=== PATIENT | female | born 1940 | race Caucasian/White ===

== ENCOUNTER 2020-02-23 13:35 | Emergency (ER) | payer OTHER, MEDICAID, SELFPAY ==
[~2020-02-23] VITALS: Ht 160 cm; Wt 53.5 kg
[2020-02-23 13:44] VITALS: Ht 160 cm; Wt 53.5 kg
[2020-02-23 16:16] LABS: BASOPHIL % 0.1 % (0-2); PLATELET COUNT 333 x10^3mcL (130-400)
[2020-02-23 16:17] LABS: RED CELL DISTRIBUTION WIDTH 15.4 % (11.5-14.5)
[2020-02-23 16:55] LABS: ALKALINE PHOSPHATASE 69 U/L (46-116); ALT/SGPT 20 U/L (14-59); AST/SGOT 13 U/L (15-37); BILIRUBIN TOTAL 0.2 mg/dL (0.20-1.00); CALCIUM 8.9 mg/dL (8.5-10.1); CARBON DIOXIDE 22.1 mmol/L (21-32); CHLORIDE SERUM 109 mmol/L (98-107); CHOLESTEROL 161 mg/dL (<200); CREATININE SERUM 3.6 mg/dL (0.6-1.0); GLUCOSE SERUM 99 mg/dL (74-106); HDL CHOLESTEROL 41 mg/dL (40-60); LIPASE 177 IU/L (73-393); POTASSIUM SERUM 5.5 mmol/L (3.5-5.1); SODIUM SERUM 144 mmol/L (136-145); T4(THYROXINE) 7.2 ug/dL (4.7-13.3); TOTAL PROTEIN, SERUM 6.7 g/dL (6.4-8.2)
[2020-02-23] MEDS ORDERED: XANAX0.25 MG (17:33)
[2020-02-23] MEDS ORDERED: NOR10 PO (17:34)
[2020-02-23] MEDS ORDERED: LASIX20 MG PO (17:35)
[2020-02-23] MEDS ORDERED: ROCALTROL0.5 MCG PO (17:35)
[2020-02-23] MEDS ORDERED: MELATONIN3 M4 (17:37)
[2020-02-23] MEDS ORDERED: TOPROL XL25 MG PO (17:37)
[2020-02-23] MEDS ORDERED: ZYPREXA2.5 M1 PO (17:38)
[2020-02-23] MEDS ORDERED: POTASSIUM CHLOR8 MEQ PO (17:40)
[2020-02-23] MEDS ORDERED: ELIMITE5% (17:40)
[2020-02-23] MEDS ORDERED: MILLIPRED5 M1 PO (17:41)
[2020-02-23] MEDS ORDERED: SIMVASTATIN5 M2 PO (17:45)
[2020-02-23] MEDS ORDERED: ULTRAM50 MG PO (17:46)
[2020-02-23] MEDS ORDERED: TRAZODONE150 M1 PO (17:47)
[2020-02-23 18:43] LABS: microscopic required? YES; urine erythrocyte NEGATIVE (NEGATIVE)
[2020-02-23 18:48] LABS: AMPHETAMINE QUAL UR NONE DETECTED (See below)
[2020-02-23 19:52] VITALS: BP 157/55
== END 2020-02-23 19:52 | disposition home or self-care (01) ==
LOC: ED 13:35
PROVIDERS: Emergency Medicine
DX: D64.9 Anemia, unspecified (principal); I10 Essential (primary) hypertension; E78.00 Pure hypercholesterolemia, unspecified; Z20.828 Contact with and (suspected) exposure to other viral communicable diseases
CPT/HCPCS: 87804; J1956; J7030; J7040; U0003-CS

== ENCOUNTER 2020-04-17 15:08 | Observation (INO) | payer OTHER, MEDICAID ==
[~2020-04-17] VITALS: Ht 154.9 cm; Wt 59.0 kg
[~2020-04-17 15:08] MED LIST: ELIMITE5%; LASIX20 MG PO; MELATONIN3 M4; MILLIPRED5 M1 PO; NOR10 PO; POTASSIUM CHLOR8 MEQ PO; ROCALTROL0.5 MCG PO; SIMVASTATIN5 M2 PO; TOPROL XL25 MG PO; TRAZODONE150 M1 PO; ULTRAM50 MG PO; XANAX0.25 MG; ZYPREXA2.5 M1 PO
[2020-04-17 15:11] VITALS: Ht 154.9 cm; Wt 59.0 kg
[2020-04-17 16:07] LABS: BASOPHIL % 0.1 % (0-2); PLATELET COUNT 269 x10^3mcL (130-400); RED CELL DISTRIBUTION WIDTH 16.3 % (11.5-14.5)
[2020-04-17 16:18] LABS: AMPHETAMINE QUAL UR NONE DETECTED (See below)
[2020-04-17 16:26] LABS: ALKALINE PHOSPHATASE 71 U/L (46-116); ALT/SGPT 18 U/L (14-59); AST/SGOT 15 U/L (15-37); BILIRUBIN TOTAL 0.19 mg/dL (0.20-1.00); CALCIUM 9.5 mg/dL (8.5-10.1); CARBON DIOXIDE 19.6 mmol/L (21-32); CHLORIDE SERUM 118 mmol/L (98-107); GLUCOSE SERUM 154 mg/dL (74-106); POTASSIUM SERUM 3.6 mmol/L (3.5-5.1); SODIUM SERUM 154 mmol/L (136-145)
[2020-04-17 16:29] LABS: ALBUMIN 2.5 g/dL (3.4-5.0); CHOLESTEROL 121 mg/dL (<200)
[2020-04-17 16:30] LABS: CREATININE SERUM 4.4 mg/dL (0.6-1.0)
[2020-04-18 02:05] VITALS: BP 129/83
[2020-04-18 05:38] VITALS: BP 139/73
[2020-04-18 08:24] VITALS: BP 141/75
[2020-04-18 12:48] VITALS: BP 147/72
[2020-04-18 16:34] VITALS: BP 152/68
[2020-04-18 20:31] VITALS: BP 152/79
[2020-04-19 05:38] VITALS: BP 152/74
[2020-04-19 07:39] LABS: BASOPHIL % 0.4 % (0-2); PLATELET COUNT 303 x10^3mcL (130-400)
[2020-04-19 07:45] LABS: RED CELL DISTRIBUTION WIDTH 16.4 % (11.5-14.5)
[2020-04-19 08:24] LABS: ALKALINE PHOSPHATASE 83 U/L (46-116); ALT/SGPT 21 U/L (14-59); AST/SGOT 17 U/L (15-37); BILIRUBIN DIRECT 0.06 mg/dL (0.0-0.2); BILIRUBIN TOTAL 0.23 mg/dL (0.20-1.00); CALCIUM 9.9 mg/dL (8.5-10.1); CARBON DIOXIDE 22.6 mmol/L (21-32); CHLORIDE SERUM 121 mmol/L (98-107); GLUCOSE SERUM 88 mg/dL (74-106); LIPASE 226 IU/L (73-393); MAGNESIUM 2.7 mg/dL (1.8-2.4); PHOSPHOROUS 3.2 mg/dL (2.5-4.9); POTASSIUM SERUM 4.5 mmol/L (3.5-5.1); SODIUM SERUM 156 mmol/L (136-145); TOTAL PROTEIN, SERUM 6.5 g/dL (6.4-8.2)
[2020-04-19 08:25] LABS: ALBUMIN 2.8 g/dL (3.4-5.0); CREATININE SERUM 4.1 mg/dL (0.6-1.0)
[2020-04-19 09:01] VITALS: BP 140/81
[2020-04-19 12:18] VITALS: BP 158/73
[2020-04-19 17:42] VITALS: BP 154/73
[2020-04-19 20:45] VITALS: BP 165/118
[2020-04-19 22:05] VITALS: BP 148/99
[2020-04-19 23:52] LABS: microscopic required? YES; urine erythrocyte 2+ (NEGATIVE)
[2020-04-20 05:01] VITALS: BP 159/71
[2020-04-20 07:37] LABS: BASOPHIL % 0.5 % (0-2); PLATELET COUNT 302 x10^3mcL (130-400)
[2020-04-20 07:45] LABS: RED CELL DISTRIBUTION WIDTH 16.6 % (11.5-14.5)
[2020-04-20 07:57] VITALS: BP 143/74
[2020-04-20 08:20] LABS: CALCIUM 9.9 mg/dL (8.5-10.1); CARBON DIOXIDE 22.9 mmol/L (21-32); CHLORIDE SERUM 116 mmol/L (98-107); CREATININE SERUM 3.8 mg/dL (0.6-1.0); GLUCOSE SERUM 75 mg/dL (74-106); MAGNESIUM 2.5 mg/dL (1.8-2.4); POTASSIUM SERUM 3.6 mmol/L (3.5-5.1); SODIUM SERUM 153 mmol/L (136-145)
[2020-04-20 11:41] VITALS: BP 138/70
[2020-04-20 16:38] VITALS: BP 136/68
[2020-04-20 19:55] VITALS: BP 142/69
[2020-04-21 04:36] VITALS: BP 138/54
[2020-04-21 08:15] LABS: BASOPHIL % 0.3 % (0-2); PLATELET COUNT 284 x10^3mcL (130-400)
[2020-04-21 08:30] LABS: CARBON DIOXIDE 25.8 mmol/L (21-32); CHLORIDE SERUM 107 mmol/L (98-107); CREATININE SERUM 3.4 mg/dL (0.6-1.0); GLUCOSE SERUM 100 mg/dL (74-106); MAGNESIUM 2.3 mg/dL (1.8-2.4); POTASSIUM SERUM 3.8 mmol/L (3.5-5.1); SODIUM SERUM 142 mmol/L (136-145)
[2020-04-21 08:32] VITALS: BP 157/89
[2020-04-21 13:46] VITALS: BP 122/45
[2020-04-21 16:34] VITALS: BP 109/65
== END 2020-04-21 17:20 | disposition home or self-care (01) ==
LOC: ED 15:08 → DU 23:34
PROVIDERS: Hospitalist; Internal Medicine; Internal Medicine Pulmonary Disease; Specialist; ADMIT Internal Medicine Pulmonary Disease; ATTEND Internal Medicine Pulmonary Disease
DX: Z03.818 Encounter for observation for suspected exposure to other biological agents ruled out (principal); R41.82 Altered mental status, unspecified; I12.0 Hypertensive chronic kidney disease with stage 5 chronic kidney disease or end stage renal disease; N18.5 Chronic kidney disease, stage 5; E87.0 Hyperosmolality and hypernatremia; F20.9 Schizophrenia, unspecified; F31.9 Bipolar disorder, unspecified; E86.0 Dehydration; D64.9 Anemia, unspecified; G93.41 Metabolic encephalopathy
CPT/HCPCS: 82962; 83880; G0378; G0480; J0133; J0696; J1644; J2060; J7060; J7070; Q0092; U0003-CS